=== PATIENT | female | born 1970 | race Hispanic/Latino ===

== ENCOUNTER 2018-05-07 07:47 | Day surgery (SDC) | payer MEDICAID ==
[2018-05-03 11:07] VITALS: BMI 41.3
[2018-05-07] MEDS ORDERED: Lidocaine 1% Inj (20ml) IJ ONE (08:06)
[2018-05-07] MEDS ORDERED: Bupivacaine 0.5% Inj(30mL) IJ ONE ×2 (08:06→12:29)
[2018-05-07] MEDS ORDERED: Sodium Chloride 0.9% 1,000 ML IV SCH (08:15)
[2018-05-07] MEDS ORDERED: Clindamycin 600mg/50ml D5W 600 MG/50 ML VIAL IVPB ONE (08:30)
--- NOTE | 2018-05-07 08:34 | CP.PCM.PN ---
Subjective - Date & Time of Evaluation Date of Evaluation: 05/07/18 Time of Evaluation: 08:31 - Subjective Subjective: Podiatry progress note for Dr. Reynaga 47 y/o female with PMHx of A-fib and hypertension seen and evaluated in [facility] for surgery to her Right foot today. Patient reports her accident happened in September of 2017, and patient complains of pain present since then. patient states the foot and leg swell after an entire day or walking, with worsening pain. Patient states she last ate or drank at 9:00 PM. patient denies any reaction to anesthesia. Patient is allergic to Milk and Penicillin. PMhx: HTN, A-fib Objective - Vital Signs/Intake and Output Vital Signs (last 24 hours): Temp Pulse Resp BP Pulse Ox 98.1 F 72 20 158/87 H 99 05/07/18 08:00 05/07/18 08:00 05/07/18 08:00 05/07/18 08:00 05/07/18 08:00 - Medications Medications: Current Medications Clindamycin Phosphate (Cleocin) 600 mg in 50 mls @ 50 mls/hr IVPB ONCE ONE PRN Reason: Protocol Stop: 05/07/18 09:29 Sodium Chloride (Sodium Chloride 0.9%) 1,000 mls @ 0 mls/hr IV .Q0M DURGA PRN Reason: As Directed Stop: 05/08/18 08:06 - Constitutional Appears: Well, Non-toxic, No Acute Distress - Head Exam Head Exam: ATRAUMATIC, NORMOCEPHALIC - Extremities Exam Additional comments: Vasc: DP/PT pulses palpable, Skin temperature cool CFT < 3 seconds to all digits b/l. Moderate, non-pitting edema noted to entirety of right foot and ankle. Neuro: Epicritic and protective sensation grossly intact b/l Derm: No open lesions, wounds, maceration, xerosis, abnormal pigmentation or abnormal growths noted at this time, appears cyanotic, blanchable Ortho: severe pain to right lisfranc ligament, pain with palpation to the 2-5 metatarsal base, severe pain to the right ATFL, medial and lateral malleolus, posterior achilles at the insertion, limited ROM at right ankle secondary to guarding, pain with ankle ROM, pain with the anterior ankle, patient able to wiggle toes, no pain with palpation to the deltoid ligaments. - Neurological Exam Neurological Exam: Alert, Awake, Oriented x3 - Psychiatric Exam Psychiatric exam: Normal Affect, Normal Mood Assessment and Plan - Assessment and Plan (Free Text) Assessment: 47 y/o female patient seen and evaluated in [facility] for surgeyr to her right foot for ATFl repair and Lisfranc ligament repair. Plan: Pt was seen and examined in [facility] Pt NPO status was confirmed All pre-op testing and clearance in chart Pt has exhausted all conservative treatment at this time and is opting for surgical intervention Pt was explained procedure and post-operative course All pt's questions were answered to satisfaction No guarantees were made Pt understands all risks, benefits and complications of procedure Pt will follow-up with Dr. Reynaga within 1 week of surgery
--- NOTE | 2018-05-07 08:40 | CP.SDSHP ---
Same Day Surgery H & P - History Proposed Procedure: Right foot ATFL Ligament Repair and Lisfranc Ligament Repair Pre-Op Diagnosis: pain to right foot with ATFL and Lisfranc Ligament tear - Previous Medical/Surgical History Pain: 6.Severe Pain - Allergies Allergies: Allergies milk Allergy (Verified 12/03/17 12:36) PAIN Penicillins Allergy (Verified 12/03/17 12:36) URTICARIA - Physical Exam Vital Signs: Vital Signs 05/07/18 08:00 Temperature 98.1 F Pulse Rate 72 Respiratory 20 Rate Blood Pressure 158/87 H O2 Sat by Pulse 99 Oximetry Neuro: WNL - {Optional Preform as Required} Integument: WNL - Impression Pt. Evaluated Today:Candidate for Anesthesia & Procedure: Yes - Date & Time Date: 05/07/18 Time: 08:40 Short Stay Discharge - Short Stay Discharge Admitting Diagnosis/Reason for Visit: S93.326A/ S93.401A/ Disposition: HOME/ ROUTINE Referrals: Bertrand Loya [Primary Care Provider] - Additional Instructions (Diet, Activity): -Patient in good/stable condition for discharge home -Pt to resume medications per medical reconciliation -Resume regular diet Please keep dressing clean, dry, & intact to surgical site -Use plastic bag over bandage for showering -Wear post op shoe at all times when ambulating -Call clinic if you see signs of infection (redness, swelling, malodor) -Please make an appointment to see in office/clinic within 1 week for post-op check Progress Note/Discharge Note with Instructions: - Patient evaluated bedside in recovery s/p surgical procedure. - After surgical procedure patient in NAD - (+) Void, (+) Appetite - Capillary refill time <3s and NVSI intact. - Patient denies complaints at this time - Post operative instructions and plan of care explained to patient at length. - Pt. acknowledges understanding. - Patient stable for DC per podiatric surgery
[2018-05-07] MEDS ORDERED: Lactated Ringer's 1,000 ML IV ONE ×2 (09:00→13:26)
[2018-05-07] MEDS ORDERED: Midazolam 2 MG/2 ML VIAL ONE (09:33)
[2018-05-07] MEDS ORDERED: Propofol 10 mg/ml Inj (20 ML) ONE (09:33)
[2018-05-07] MEDS ORDERED: Rocuronium 10 mg/ml (5 ml) ONE (09:34)
[2018-05-07] MEDS ORDERED: Succinylcholine 200 mg/10 ml Inj IV ONE (09:39)
[2018-05-07] MEDS ORDERED: Lidocaine 2% MPF (5 ml) Inj ONE (10:02)
[2018-05-07] MEDS ORDERED: DiphenhydrAMINE 50 mg/ml Inj ONE (10:38)
[2018-05-07] MEDS ORDERED: Oxycodone/Acetaminophen 5/325 mg Tab PO PRN ×2 (10:50)
[2018-05-07] MEDS ORDERED: Neostigmine 1:1000 (1 mg/ml) Inj ONE (12:22)
--- NOTE | 2018-05-07 12:50 | PCM.SURG1 ---
Surgeon's Initial Post Op Note - Surgeon's Notes Surgeon: Dr. Reynaga, DPM and Dr. Winters DPM [place]: Dr. Jesika Godoy PGY3, Dr. Marcial Mirza PGY2, Dr. Reji De Leon PGY2 Type of Anesthesia: General Endo, Local Anesthesia Administered By: Dr. Hsu Pre-Operative Diagnosis: Right foot rupture of the Anterior Talo-Fibular Ligament and Lisfranc Ligament with loose body Operative Findings: see dictation. I: intra-operative- 20 cc 0.5% Marcaine plain. M: 4-0 Vicryl, 3-0 Vicryl, 4-0 Nylon. 4.5 X 38 mm Yarbrough Autumn Lisfranc Screw Post-Operative Diagnosis: same Operation Performed: 1) Repair of the Right Anterior Talo-fibular Ligament with Arthrex internal Brace and mini Suture Nahid. 2) Repair of the Lisfranc Ligament with [employer]rough Autumn System Specimen/Specimens Removed: Loose body Estimated Blood Loss: EBL {In ML}: 10 Blood Products Given: N/A Drains Used: No Drains Post-Op Condition: Good Date of Surgery/Procedure: 05/07/18 Time of Surgery/Procedure: 12:51
--- NOTE | 2018-05-07 12:51 | RAD ---
Date of service: 05/07/2018 PROCEDURE: Fluoroscopy up to 1 hr. HISTORY: RIGHT ANKLE COMPARISON: None TECHNIQUE: Standard protocol for this study/examination. FINDINGS: Total fluoroscopic time (continuous mode) utilized during the procedure 150.1 (seconds). Total exam DLP: 5.34 (mGy). IMPRESSION: Less than 1 hr fluoroscopic assistance provided during performance of the procedure.
[2018-05-07] MEDS ORDERED: HYDROmorphone 0.5 mg/0.5 ml ISec IVP PRN (12:53)
[2018-05-07 13:40] VITALS: RESP 18
[2018-05-07] MEDS ORDERED: Dexamethasone 4 mg/1 ml IV ONE (18:30)
[2018-05-07 18:33] VITALS: TEMP 98.7; O2SAT 95
[2018-05-07 19:14] VITALS: BP 141/62; PULSE 98
--- NOTE | 2018-05-08 14:58 | RAD ---
Date of service: 05/07/2018 PROCEDURE: Right Foot Radiographs. HISTORY: s/p Right Foot Surgery COMPARISON: Right foot radiographs 04/16/2018. FINDINGS: BONES: Cast obscures fine bone and soft-tissue detail. Solitary compression screw transfixes the medial cuneiform to the base of the 2nd metatarsal bone. No acute fracture dislocation appreciable. JOINTS: Interphalangeal degenerative joint disease reiterated as well as particularly at the 1st metatarsal phalangeal joint. SOFT TISSUES: Normal. OTHER FINDINGS: None. IMPRESSION: Status post medial cuneiform fusion to base of 2nd metatarsal bone as discussed above with solitary compression screw identified. No fracture, subluxation or dislocation identified. Cast obscures fine bony and soft tissue details.
--- NOTE | 2018-05-10 19:09 | PCM.OP ---
Operative Report - Operative Report Date of Surgery/Procedure: 05/07/18 Time of Surgery/Procedure: 08:00 Surgeon: Dr. Reynaga Athletic Equipment Custodian: Dr. Jesika Godoy, Dr. Winters, Dr. Mirza, Dr. De Leon Anesthesia/Sedation: General Endo and Local Pre-Operative Diagnosis: 1)Right foot rupture of Lisfranc ligament. 2)Right ankle painful osseous loose body. 3)Right ankle lateral instability with rupture of ATFL Post-Operative Diagnosis: same Indication for Surgery: Indications: The patient is a 47 year-old female with the above diagnoses. Patient have exhausted conservative treatment at this point and now requests surgical intervention for left ankle. The patient signed the consent after careful explanation of risks, benefits, complication and alternatives for surgical procedure. No guarantees were given nor implied. 900 mg of Clindamycin IV were given to the pt hour prior to the procedure. NPO status was confirmed prior to taking pt to the OR. Operative Findings: Preparation: The patient was brought to the operating room and placed on the operating room table in supine position. A well-padded pneumatic Thigh tourniquet was placed to the patient's Right Thigh. Once general anesthesia was achieved, the Left Lower extremity was then prepped and draped in usual sterile manner. Esmarch was utilized to exsanguinate the patient's Left lower extremity. Pneumatic Thigh tourniquet was then inflated to 350 mmHg and procedure began. Procedure/Operation Description: Name of Procedure: #1: Right foot Lisfranc ligament repair with [employer] Autumn Lisfranc Screw. #2: Right ankle surgical excision of osseous loose body. #3: Right ankle lateral stabilization with Arthrex internal brace and Fibertak. Procedure:. PROCEDURE #1: Right foot Lisfranc ligament repair with [employer] Autumn Lisfranc Reconstruction Set. Attention was directed to the dorsal aspect of the right foot overlying the 2nd and 3rd metatarsal bases. An approximately 2cm linear longitudinal incision was created overlying the lateral aspect of 2nd metatarsal base. The incision was carried down through subcutaneous tissues with care being taken to identify all vital neurovascular structures; all bleeders were cauterized and ligated as necessary. Utilizing a #15 blade, the capsular structures were incised and the lateral aspect of 2nd metatarsal base was visualized. Next, attention was directed to dorsal medial aspect of the right foot at the level of 1st metatarso-cuneiform joint. The location of the joint was confirmed using intra-operative Xray. Utilizing #15 blade, approximately 3cm linear longitudinal incision was made over the 1st metatarso- cuneiform joint. The incision was carried down through subcutaneous tissues with care being taken to identify all vital neurovascular structures; all bleeders were cauterized and ligated as necessary. Utilizing a #15 blade, the capsular structures were incised and the medial aspect the medial cuneiform was visualized. Next, [employer] Radiolucent targeting guide from [employer] was placed at the level of the Lisfranc ligament with reduction clamps placed over lateral aspect of 2nd metatarsal base and medial aspect of medial cuneiform. Optimal position and orientation of the guide was determined with intra-operative Xray. Next, a 1.6mm K-wire was placed through the guide for placement of the homerun screw. Next, a 3.2mm cannulated drill bit was utilized to under-drill through all cortices of medial cuneiform and 2nd metatarsal base. Next, a cannulated 4.5 screw was placed over the K-wire providing excellent compression between 2nd metatarsal base and the medial cuneiform. Excellent orientation and placement of the screw was confirmed with intra- operative Xray. The surgical site was flushed with copious amount of normal sterile saline. The deep tissues of the two incision sites were re-approximated and coapted with #3-0 vicryl, subcutaneous tissue was re-approximated with $3-0 vicryl and the skin was re-approximated with #4-0 Prolene. PROCEDURE #2: Right ankle surgical excision of osseous loose body. Under fluoroscopy, the location of osseous loose body was confirmed within the lateral gutter of right ankle between fibular and talus. Attention was directed to the lateral aspect of the right ankle joint overlying the anterior aspect of the distal fibula. An approximately 5cm curvilinear incision was created overlying the ATFL at the level of the lateral gutter. The incision was carried down through subcutaneous tissues with care being taken to identify all vital neurovascular structures; all bleeders were cauterized and ligated as necessary. Utilizing a #15 blade, the capsular structures were incised in a vertical fashion overlying the roof of the sinus tarsi. Once the capsular structures were incised, osseous loose body was noted impinged within the anterior aspect of lateral ankle gutter. Utilizing #15 blade, the osseous fragment was excised from the lateral ankle gutter. The specimen measured approximately 1cm x 0.6cm x 0.6cm in volume and was sent for pathology. The surgical site was flushed with copious amount of sterile normal saline. Complete removal of the loose body was confirmed with intra-operative Xray. PROCEDURE #3: Right ankle lateral stabilization with Arthrex Internal Brace and Fibertak. Attention was re-directed to right ankle lateral gutter. At the level of distal fibular, unhealthy portion of the ATFL was visualized. The ankle joint was inverted and the articular cartilage and lateral gutter were inspected for any osteochondral lesions and none were noted. Next, the 3.4mm drill hole was created on the non-articulating surface of the talar body directed approximately 45 degrees to prevent violating the articular cartilage of ankle joint. Then a 4.75mm Swivelock tap was utilized to prepare for Internal brace. The fiber tape from the Internal Brace was fed through the eyelet of the 4.75mm Swivelock and the anchor was inserted into the pre-tabbed hole in talus with a mallet to assist with proper placement. The Swivelock anchor was placed into talus with twisting motions. Firm placement of the anchor was noted. The surgical site was irrigated with copious amount of normal sterile saline. Next, the 2.7mm drill bit from the Internal Brace kit was utilized to create a drill hole 1.5cm proximal to the distal tip of the fibula. The drill hole was then tapped with a 3.5mm tap for at least two turns to securely fit into the fibula. Next, the 3.5mm Swivelock which was loaded with the fibertape was placed into the drill hole. To avoid over-tensioning, the hemostat was placed in underneath the fiber tape while inserting the Swivelock. Firm placement of the Internal Brace into fibular was confirmed with intra-operative passive range of motion at the ankle joint. Excess fibertape was cut and removed from the operative field. Next, a 2.4 mm drill bit for [employer] Onln[employer]rex Fibertak was utilized to create one drill hole in the anterior aspect of fibular 1cm proximal to the initial Swivelock anchor placement for Internal Brace. Next, one Arthrex Fiber belgica was placed in the hole. The sutures from Fibertak were then fed through the ATFL, the Capsular tissues and the extensor retinaculum in an over and over suture fashion. While performing this, the foot was placed in slightly dorsiflexion position. The ankle was stressed in eversion and inversion with excellent stability noted. The surgical site was irrigated with copious amount of normal sterile saline. The surgical site was then irrigated with copious amounts of normal sterile saline. The deep tissues were reapproximated with #2-0, #3-0 vicryl sutures and subcutaneous tissues were reapproximated with #4-0 vicry sutures. The skin was then reapproximated with #4-0 prolene sutures. All surgical sites were then infiltrated with a total of 15cc of 0.5% Marcaine plain. All sites were now dressed with moist 4x4 gauze, dry 4x4 gauze, keanu, Webrils, VERONA bandage and a posterior splint. The attending was present during the case. Estimated Blood Loss: less than 5 mL Complications: none Discharge & Condition: Postoperative Condition: The patient tolerated the anesthesia and procedure well and was escorted to the recovery room with vital signs stable and neurovascular status intact to the right foot and ankle. This patient will follow up with Dr. Reynaga
== END 2018-05-07 19:08 | disposition home or self-care (01) ==
LOC: H.OPSURG 07:47
PROVIDERS: ATTEND Podiatrist Foot & Ankle Surgery
DX: S93.326A Dislocation of tarsometatarsal joint of unspecified foot, initial encounter (principal); X58.XXXA Exposure to other specified factors, initial encounter; I10 Essential (primary) hypertension; K21.9 Gastro-esophageal reflux disease without esophagitis; I48.91 Unspecified atrial fibrillation; Z88.0 Allergy status to penicillin; Z91.011 Allergy to milk products; Z86.73 Personal history of transient ischemic attack (TIA), and cerebral infarction without residual deficits
CPT/HCPCS: 28475; 29894; 73630; 88304; C1713; J0330; J1100; J1170; J1200; J2175; J2250; J2405; J2704; J2710; J2765; J3010; J7120

== ENCOUNTER 2018-10-15 11:33 | Emergency (ER) | payer MEDICAID ==
[2018-10-15 11:40] VITALS: BMI 39.5
[2018-10-15 11:41] VITALS: TEMP 98.7; O2SAT 99
--- NOTE | 2018-10-15 12:36 | ED PDOC ---
HPI: Chest Pain Time Seen by Provider: 10/15/18 12:20 Chief Complaint (Nursing): Lower Extremity Problem/Injury Chief Complaint (Provider): Chest pain and leg swelling History Per: Patient History/Exam Limitations: no limitations Onset/Duration Of Symptoms: Days Current Symptoms Are (Timing): Still Present Quality: Tightness, Pressure Additional Complaint(s): Cande Lopez is a 47 year old female, with a past medical history of TIA, A-fib and HTN, who presents to the emergency department complaining of an intermittent chest pain that started a couple of days ago associated with a right leg swelling that began today. Patient states she recently had a surgery done on her right foot and went to her supervisor mails today for a follow up appointment. She was noted to have right leg swelling and was referred to the emergency department to rule out a blood clot. Patient describes the pain as pressure or tightness and states her right leg feels warm. Patient initially believed symptoms were related to stress but has been taking aspirin for her pain. She denies any fever, chills, shortness of breath, nausea, vomit, weakness, numbness, tingling or other medical complaints. PMD: Bertrand Loya Past Medical History Reviewed: Historical Data, Nursing Documentation, Vital Signs Vital Signs: Last Vital Signs Temp 98.7 F 10/15/18 11:40 Pulse 66 10/15/18 11:40 Resp 17 10/15/18 11:40 BP 137/88 10/15/18 11:40 Pulse Ox 99 10/15/18 11:40 - Medical History PMH: Anxiety, Atrial Fibrillation, Cardia Arrhythmia, Fractures (left leg fracture), HTN, Pancreatitis, Peripheral Edema (+1 b/l), Pneumonia, Chronic Kidney Disease, TIA Denies: Alzheimer's Disease, Anemia, Arthritis, Asthma, Bipolar Disorder, Bronchitis, COPD, Crohn's Disease, Dementia, Depression, Diverticulitis, Emphysema, Fibromyalgia, Gastrointestinal Ulcer, Gall Bladder Disease, HIV, Hyperthyroidism, Hypothyroidism, Kidney Stones, Migraine, Osteoporosis, Paranoia, Parkinson's Disease, Post Traumatic Stress Disorder, Schizophrenia, Seizures, Sickle Cell Disease, Sexually Transmitted Disease, Sleep Apnea - Surgical History Surgical History: Endoscopy Denies: Appendectomy, Cholecystectomy - Family History Family History: States: Unknown Family Hx - Social History Current smoker - smoking cessation education provided: No Alcohol: Social Drugs: Denies - Allergies Allergies/Adverse Reactions: Allergies Allergy/AdvReac Type Severity Reaction Status Date / Time milk Allergy PAIN Verified 10/15/18 12:14 Penicillins Allergy URTICARIA Verified 10/15/18 12:14 Review of Systems ROS Statement: Except As Marked, All Systems Reviewed And Found Negative Constitutional: Negative for: Fever, Chills Cardiovascular: Positive for: Chest Pain, Edema (right leg) Respiratory: Negative for: Shortness of Breath Gastrointestinal: Negative for: Nausea, Vomiting Neurological: Negative for: Weakness, Numbness (tingling) Physical Exam - Reviewed Nursing Documentation Reviewed: Yes Vital Signs Reviewed: Yes - Physical Exam Appears: Positive for: No Acute Distress Head Exam: Positive for: ATRAUMATIC, NORMAL INSPECTION, NORMOCEPHALIC Skin: Positive for: Normal Color, Warm, Dry Eye Exam: Positive for: Normal appearance, EOMI, PERRL Neck: Positive for: Normal, Painless ROM, Supple Cardiovascular/Chest: Positive for: Regular Rate, Rhythm. Negative for: Murmur Respiratory: Positive for: Normal Breath Sounds (clear to auscultation). Negative for: Respiratory Distress Gastrointestinal/Abdominal: Positive for: Normal Exam, Soft. Negative for: Tenderness, Guarding, Rebound Back: Positive for: Normal Inspection. Negative for: L CVA Tenderness, R CVA Tenderness Extremity: Positive for: Normal ROM, Tenderness (behind right knee), Calf Tenderness (right calf squeeze), Swelling (right lower extremity). Negative for: Deformity Neurologic/Psych: Positive for: Alert, Oriented. Negative for: Motor/Sensory Deficits - Laboratory Results Result Diagrams: 10/15/18 13:20 10/15/18 13:20 - ECG O2 Sat by Pulse Oximetry: 99 (RA) Pulse Ox Interpretation: Normal Medical Decision Making Medical Decision Making: Time: 12:20 Initial Plan: Chest tightness, pressure and new onset of leg swelling and pain with recent immobility due to foot surgery. R/o DVT and PE. Initial Plan: --Angio Chest PE Protocol [CT] --CMP --CBC w/ differential --PTT --PT --Chest two views (PA/LAT) [RAD] --Duplex Lower Extrm Vein right [US] --Reevaluation 15:[address] FINDINGS: PULMONARY ARTERIES: Unremarkable. No pulmonary embolism. AORTA: No acute findings. No thoracic aortic aneurysm. No atherosclerotic calcification or mural plaque present. LUNGS: Unremarkable. No nodule, mass or pulmonary consolidation. PLEURAL SPACES: Unremarkable. No effusion or pneumothorax. HEART: Unremarkable. No cardiomegaly. No significant pericardial effusion. LYMPH NODES: No lymphadenopathy. BONES, CHEST WALL: Unremarkable. No fracture or destructive lesion OTHER FINDINGS: Incompletely visualize benign lesion right kidney likely, based on Hounsfield unit values a simple cyst. IMPRESSION: Unremarkable CT pulmonary angiogram. No pulmonary embolus. 15:57 Extremity Ultrasound FINDINGS: COMMON FEMORAL VEIN: Unremarkable. SUPERFICIAL FEMORAL VEIN: Unremarkable. POPLITEAL VEIN: Unremarkable. POSTERIOR TIBIAL VEIN: Unremarkable. OTHER FINDINGS: Right lower extremity/ankle and calf edema. IMPRESSION: No evidence of deep venous thrombosis in the right lower extremity. ------- Scribe Attestation: Documented by Yohnanes Randhawa, acting as a scribe for Tova De Anda MD Provider Scribe Attestation: All medical record entries made by the Scribe were at my direction and personally dictated by me. I have reviewed the chart and agree that the record accurately reflects my personal performance of the history, physical exam, medical decision making, and the department course for this patient. I have also personally directed, reviewed, and agree with the discharge instructions and di sposition. Time: 1747 -- Discussed findings with the patient. Patient reports of feeling symptom free at this time. Patient instructed to follow up with PMD and podiatry for further management. Patient requesting for a referral for a senior control systems engineer as she had a bad experience with her previous [employer]. Patient given referral. Return parameters discussed. Vitals within normal limits Scribe Attestation: Documented by Trenton Gee, acting as a scribe for Tova De Anda MD. Provider Scribe Attestation: All medical record entries made by the Scribe were at my direction and personally dictated by me. I have reviewed the chart and agree that the record accurately reflects my personal performance of the history, physical exam, medical decision making, and the department course for this patient. I have also personally directed, reviewed, and agree with the discharge instructions and disposition. Disposition - Clinical Impression Clinical Impression: Chest pain - Disposition Referrals: Rylan Hoskins MD [Staff Provider] - Jesi Grissom MD [Staff Provider] - Disposition: Routine/Home Disposition Time: 17:48 Condition: IMPROVED Additional Instructions: Follow up with primary medical doctor and senior control systems engineer. Return to the emergency department if symptoms worsen or if new symptoms develop. Instructions: Chest Pain That Is Not Caused by the Heart (DC), Chest Pain (DC), Heart Disease in Women (DC) Forms: [employer] (Peruvian) Print Language: EAST TIMORESE
[2018-10-15 13:29] LABS: BASO # 0.1 K/uL (0.0-0.2); BASO % 0.8 % (0.0-2.0); EOS # 0.3 K/uL (0.0-0.7); EOS % 3.5 % (0.0-4.0); HEMOGLOBIN 13.3 g/dL (12.0-16.0); LYMPH # 2.1 K/uL (1.0-4.3); LYMPH % 24.3 % (20.0-40.0); MEAN CELL VOLUME 86.4 fl (81.0-99.0); MEAN CORPUSCULAR HEMOGLOBIN 29.4 pg (27.0-31.0); MEAN PLATELET VOLUME 7.6 fl (7.2-11.7); MONO # 0.4 K/uL (0.0-0.8); MONO % 4.4 % (0.0-10.0); NEUT # 5.7 K/uL (1.8-7.0); NRBC % 0.1 % (0.0-0.0); RBC 4.52 Mil/uL (3.80-5.20); RED CELL DISTRIBUTION WIDTH 13.3 % (11.5-14.5); WHITE BLOOD COUNT 8.5 K/uL (4.8-10.8)
[2018-10-15 13:39] LABS: ALB/GLOB RATIO 1.3 (1.0-2.1); ALBUMIN 4.2 g/dL (3.5-5.0); ALT/SGPT 28 U/L (9-52); AST/SGOT 27 U/L (14-36); BLOOD UREA NITROGEN 22 mg/dl (7-17); CALCIUM 9.3 mg/dL (8.4-10.2); GFR NON-AFRICAN AMERICAN > 60
[2018-10-15 14:50] LABS: INR 1.2; PROTHROMBIN TIME 13.9 Seconds (9.8-13.1)
[2018-10-15 15:25] LABS: PARTIAL THROMBOPLASTIN TIME 70.2 Seconds (25.6-37.1)
--- NOTE | 2018-10-15 16:00 | US ---
Date of service: 10/15/2018 PROCEDURE: Right lower extremity venous duplex Doppler. HISTORY: right leg swelling and pain COMPARISON: None available. TECHNIQUE: Common femoral, superficial femoral, popliteal and posterior tibial veins were evaluated. Flow was assessed with color Doppler, compressibility, assessment of phasic flow and augmentation response. FINDINGS: COMMON FEMORAL VEIN: Unremarkable. SUPERFICIAL FEMORAL VEIN: Unremarkable. POPLITEAL VEIN: Unremarkable. POSTERIOR TIBIAL VEIN: Unremarkable. OTHER FINDINGS: Right lower extremity/ankle and calf edema. IMPRESSION: No evidence of deep venous thrombosis in the right lower extremity.
--- NOTE | 2018-10-15 16:00 | CT ---
Date of service: 10/15/2018 PROCEDURE: CT Chest with contrast (Pulmonary Angiogram) HISTORY: chest pain, SOB, right leg swelling and pain COMPARISON: Right lower extremity duplex venous sonography. Summary of findings on the comparison examination: Negative examination for right lower deep vein thrombosis. TECHNIQUE: Axial computed tomography images were obtained of the chest in the pulmonary arterial phase of enhancement. Coronal and sagittal reformatted images were created and reviewed. Maximum intensity projection (MIP) reconstructed images in the following planes: Axial only. Intravenous contrast dose: 99 cc Visipaque 320. Mean Hounsfield value in the main pulmonary artery: 254.48 Radiation dose: Total exam DLP = 340.48 mGy-cm. This CT exam was performed using one or more of the following dose reduction techniques: Automated exposure control, adjustment of the mA and/or kV according to patient size, and/or use of iterative reconstruction technique. FINDINGS: PULMONARY ARTERIES: Unremarkable. No pulmonary embolism. AORTA: No acute findings. No thoracic aortic aneurysm. No atherosclerotic calcification or mural plaque present. LUNGS: Unremarkable. No nodule, mass or pulmonary consolidation. PLEURAL SPACES: Unremarkable. No effusion or pneumothorax. HEART: Unremarkable. No cardiomegaly. No significant pericardial effusion. LYMPH NODES: No lymphadenopathy. BONES, CHEST WALL: Unremarkable. No fracture or destructive lesion OTHER FINDINGS: Incompletely visualize benign lesion right kidney likely, based on Hounsfield unit values a simple cyst. IMPRESSION: Unremarkable CT pulmonary angiogram. No pulmonary embolus.
[2018-10-15 18:25] VITALS: BP 119/75; PULSE 71; RESP 18
--- NOTE | 2018-10-16 14:52 | RAD ---
Date of service: 10/15/2018 HISTORY: cough COMPARISON: No prior. TECHNIQUE: Chest PA and lateral FINDINGS: LUNGS: No active pulmonary disease. PLEURA: No significant pleural effusion identified. No pneumothorax apparent. CARDIOVASCULAR: No aortic atherosclerotic calcification present. Normal cardiac size. No pulmonary vascular congestion. OSSEOUS STRUCTURES: No significant abnormalities. VISUALIZED UPPER ABDOMEN: Normal. OTHER FINDINGS: None. IMPRESSION: No acute cardiopulmonary disease appreciated.
== END 2018-10-15 17:42 | disposition home or self-care (01) ==
LOC: H.ER 11:33
DX: R07.89 Other chest pain (principal)